=== PATIENT | male | born 1995 | race American Indian/Alaskan Native ===

== ENCOUNTER 2017-03-12 08:05 | Emergency (ER) | payer OTHER ==
[2017-03-12 08:14] VITALS: BP 121/79
--- NOTE | 2017-03-12 10:23 | Emergency Department Report ---
ED General Adult HPI - General Chief complaint: Dental/Oral Stated complaint: MOUTH SWOLLEN Time Seen by Provider: 03/12/17 10:07 Source: patient Mode of arrival: Ambulatory Limitations: No Limitations - History of Present Illness Initial comments: The patient is a 21-year-old malesignificant past medical history who presents with oral pain. Patient has noticed blisters inside his lower lip and his upper tooth. He states that the pain is 7 out of 10 eating makes the pain worse nothing makes it better. He states that his symptoms have been going on for last 3 days. As a burning achy type of pain. The pain doesn't radiate. Patient states that he had a fever when his pain initially started. Patient denies any nausea or vomiting or any chest pain. - Related Data Previous Rx's Medication Instructions Recorded Last Taken Type Acyclovir [Acyclovir Ointment] 1 applicatio TP 5XD #1 tube 03/12/17 Unknown Rx Penicillin V Potassium [Penicillin 250 mg PO TID #75 ml 03/12/17 Unknown Rx V Potassium ORAL LIQ] Allergies Allergy/AdvReac Type Severity Reaction Status Date / Time No Known Allergies Allergy Unverified 03/12/17 08:10 ED Review of Systems ROS: Stated complaint: MOUTH SWOLLEN Other details as noted in HPI Constitutional: fever. denies: chills Eyes: denies: eye pain, eye discharge, vision change ENT: as per HPI. denies: ear pain, throat pain Respiratory: denies: cough, shortness of breath, wheezing Cardiovascular: denies: chest pain, palpitations Endocrine: no symptoms reported Gastrointestinal: denies: abdominal pain, nausea, diarrhea Genitourinary: denies: urgency, dysuria Musculoskeletal: denies: back pain, joint swelling, arthralgia Skin: denies: rash, lesions Neurological: denies: headache, weakness, paresthesias Psychiatric: denies: anxiety, depression Hematological/Lymphatic: denies: easy bleeding, easy bruising ED Past Medical Hx - Past Medical History Previous Medical History?: No - Surgical History Past Surgical History?: No - Social History Smoking Status: Never Smoker Substance Use Type: None - Medications Home Medications: Home Medications Medication Instructions Recorded Confirmed Last Taken Type Acyclovir [Acyclovir Ointment] 1 applicatio TP 5XD #1 tube 03/12/17 Unknown Rx Penicillin V Potassium [Penicillin 250 mg PO TID #75 ml 03/12/17 Unknown Rx V Potassium ORAL LIQ] ED Physical Exam - General Limitations: No Limitations General appearance: alert, in no apparent distress - Head Head exam: Present: atraumatic, normocephalic - Eye Eye exam: Present: normal appearance - ENT ENT exam: Present: mucous membranes moist - Expanded ENT Exam Expanded Mouth exam: Present: other (group blisters with red base on the lower lip group blisters group base blister on roof of mouth) - Neck Neck exam: Present: normal inspection - Respiratory Respiratory exam: Present: normal lung sounds bilaterally. Absent: respiratory distress - Cardiovascular Cardiovascular Exam: Present: regular rate, normal rhythm. Absent: systolic murmur, diastolic murmur, rubs, gallop - GI/Abdominal GI/Abdominal exam: Present: soft, normal bowel sounds - Rectal Rectal exam: Present: deferred - Extremities Exam Extremities exam: Present: normal inspection - Back Exam Back exam: Present: normal inspection - Neurological Exam Neurological exam: Present: alert, oriented X3 - Psychiatric Psychiatric exam: Present: normal affect, normal mood - Skin Skin exam: Present: warm, dry, intact, normal color. Absent: rash ED Course Vital Signs 03/12/17 08:10 Temperature 98 F Pulse Rate 77 Respiratory 18 Rate Blood Pressure 121/79 O2 Sat by Pulse 100 Oximetry - Reevaluation(s) Reevaluation #1: 03/12/17 12:10 Patient received viscous lidocaine for blisters's pain is better will send patient home with prescription for acyclovir. ED Medical Decision Making - Medical Decision Making Chief medical diagnosis: Oral Herpes Differential medical diagnosis: Periapical abscess, viral infection Wall treat patient symptoms with viscous lidocaine and we'll send patient home with oral acyclovir and liquid penicillin due to patient not one to take pills. Critical care attestation.: If time is entered above; I have spent that time in minutes in the direct care of this critically ill patient, excluding procedure time. ED Disposition Clinical Impression: Mouth sores, Oral herpes simplex infection Disposition: DC-01 TO HOME OR SELFCARE Is pt being admited?: No Does the pt Need Aspirin: No Condition: Stable Instructions: Canker Sores (ED) Prescriptions: Acyclovir [Acyclovir Ointment] 1 applicatio TP 5XD #1 tube Penicillin V Potassium [Penicillin V Potassium ORAL LIQ] 250 mg PO TID #75 ml Referrals: PRIMARY CAREMD [Primary Care Provider] - 3-5 Days VIOLA MOSHER MD [Staff Physician] - 3-5 Days
[2017-03-12] MEDS ORDERED: LIDOCAINE VISCOUS 2% MM NR (10:45)
[2017-03-12] MEDS: ZOVIRAX PO ONE ×2 (10:49→11:01)
[2017-03-12] MEDS ORDERED: ZOVIRAX PO ONE (11:00)
== END 2017-03-12 11:23 | disposition home or self-care (01) ==
LOC: ED 08:05
DX: K13.70 Unspecified lesions of oral mucosa (principal); B00.9 Herpesviral infection, unspecified
CPT/HCPCS: 99282